=== PATIENT | female | born 1995 | race Caucasian/White ===

== ENCOUNTER 2017-05-30 13:47 | Emergency (ER) | payer MEDICAID, MEDICARE ==
[~2017-05-30] VITALS: Ht 167.6 cm; Wt 95.0 kg
[2017-05-30 13:50] VITALS: BP 129/73
[2017-05-30] MEDS ORDERED: KETOROLAC 60MG/2ML VIAL IM ONE (16:15)
== END 2017-05-30 18:18 | disposition home or self-care (01) ==
LOC: ER 14:52
DX: R07.81 Pleurodynia (principal); R03.0 Elevated blood-pressure reading, without diagnosis of hypertension; V49.49XA Driver injured in collision with other motor vehicles in traffic accident, initial encounter; Y93.89 Activity, other specified; Y92.410 Unspecified street and highway as the place of occurrence of the external cause
CPT/HCPCS: 71111; 96372; 99284; J1885

== ENCOUNTER 2017-07-10 19:43 | Emergency (ER) | payer MEDICARE | END 2017-07-10 23:18 | disposition left against medical advice (07) | LOC: ER 20:43 | DX: Z53.21 Procedure and treatment not carried out due to patient leaving prior to being seen by health care provider (principal) ==

== ENCOUNTER 2022-07-22 09:29 | Emergency (ER) | payer MEDICAID, MEDICARE ==
[~2022-07-22] VITALS: Ht 167.6 cm; Wt 105.0 kg
[2022-07-22 09:33] VITALS: BP 115/74
[2022-07-22] MEDS ORDERED: ACETAMINOPHEN 325MG TABLET PO ONE (09:45)
[2022-07-22 12:13] LABS: CLARITY URINE CLEAR (CLEAR); COLOR URINE YELLOW (YELLOW); KETONES URINE TRACE (NEGATIVE); LEUKOCYTE ESTERASE URINE TRACE (NEGATIVE); NITRITE URINE NEGATIVE (NEGATIVE); OCCULT BLOOD URINE 3+ (NEGATIVE); PH URINE 6.5 (4.5-8.0); PROTEIN URINE 3+ (NEGATIVE)
== END 2022-07-22 12:32 | disposition left against medical advice (07) ==
LOC: ER 09:29
DX: R10.31 Right lower quadrant pain (principal); N83.201 Unspecified ovarian cyst, right side; M32.9 Systemic lupus erythematosus, unspecified; M06.9 Rheumatoid arthritis, unspecified
CPT/HCPCS: 76830; 76856; 81003; 81025; 99284